=== PATIENT | female | born 1995 | race Caucasian/White ===

== ENCOUNTER 2017-11-05 11:58 | Emergency (ER) | payer OTHER ==
[~2017-11-05] VITALS: Ht 162.6 cm; Wt 49.9 kg
[~2017-11-05 11:58] MED LIST: IBUPROFEN 600600 M1 PO
[2017-11-05] MEDS ORDERED: SERTRALINE HCL50 MG PO (12:15)
[2017-11-05] MEDS ORDERED: MOBIC7.5 M1 PO (12:15)
[2017-11-05] MEDS ORDERED: XANAX 0.25 MG0.25 MG PO (12:16)
[2017-11-05 12:43] LABS: URINE BILIRUBIN NEGATIVE (Negative); URINE BLOOD 3+ (Negative); URINE CLARITY SL CLOUDY; URINE COLOR YELLOW; URINE GLUCOSE-RANDOM NEGATIVE (Negative); URINE KETONES NEGATIVE (Negative); URINE LEUKOCYTES 1+ (Negative); URINE NITRITE POSITIVE (Negative); URINE PROTEIN 1+ (Negative); URINE UROBILINOGEN 0.2 E.U./dl (0.2-1.0)
[2017-11-05 12:46] LABS: ABSOLUTE EOSINOPHILS 0.1 thou/uL (0.0-0.7); ABSOLUTE LYMPHOCYTES 1.6 thou/uL (0.8-5.3); ABSOLUTE MONOCYTES 0.5 thou/uL (0.0-1.2); ABSOLUTE NEUTROPHILS 6.5 thou/uL (1.6-8.1); BASOPHILS 0.3 %; LYMPHOCYTES 18.6 %; MCH 31.7 pg (26.0-34.0); MCV 93.2 fL (80.0-100.0); MONOCYTES 6.2 %; MPV 8.3 fl. (7.2-11.1); NUCLEATED RBCS 0 /100WBC; PLATELET COUNT* 281 thou/uL (150-400); POLYS 73.9 %; RBC 4.72 mil/uL (4.20-5.00); RDW-CV 12.9 % (10.5-14.5); WBC 8.8 thou/uL (4.0-11.0)
[2017-11-05 12:50] LABS: CALCIUM 9.5 mg/dL (8.5-10.1); CREATININE 0.7 mg/dL (0.6-1.3); POTASSIUM 3.5 mmol/L (3.5-5.1)
[2017-11-05 12:54] LABS: SQUAMOUS >10 Many /LPF (0-3)
[2017-11-05 12:55] LABS: ALBUMIN 4.6 g/dL (3.4-5.0); TOTAL BILIRUBIN 0.7 mg/dL (<0.1-1.0); TOTAL PROTEIN 8.2 g/dL (6.4-8.2)
[2017-11-05 12:56] LABS: AMORPHOUS PHOSPHATES Moderate /LPF (None Seen); CASTS None Seen /LPF (None Seen); MUCUS None Seen strn/LPF (None Seen)
[2017-11-05] MEDS ORDERED: FLAGYL500 MG PO (14:48)
[2017-11-05] MEDS ORDERED: IBUPROFEN 800800 M1 PO (14:48)
[2017-11-05] MEDS ORDERED: KEFLEX500 M1 PO (14:48)
[2017-11-05 15:00] VITALS: BP 96/44
== END 2017-11-05 15:01 | disposition home or self-care (01) ==
LOC: M.ERS 11:58
PROVIDERS: Physician Assistant
DX: N30.00 Acute cystitis without hematuria (principal); N76.0 Acute vaginitis; N20.0 Calculus of kidney; J45.909 Unspecified asthma, uncomplicated; F17.200 Nicotine dependence, unspecified, uncomplicated